=== PATIENT | female | born 1975 | race Caucasian/White ===

== ENCOUNTER 2016-06-09 17:43 | Emergency (ER) | payer OTHER ==
[2016-06-09 18:08] VITALS: BP 146/91; BMI 41.5
[2016-06-09] MEDS ORDERED: TORADOL 60 MG VIAL IM ONE (18:24)
[2016-06-09] MEDS ORDERED: DECADRON INJ IM ONE (18:24)
--- NOTE | 2016-06-09 18:26 | DR.EXTPAIN ---
HPI - Time seen Time seen: 18:25 - PCP Primary Care Physician: RAMILA ALMEIDA - HPI Comment HPI Comment: NO OBVIOUS INJURY. TRAMADOL NOT HELPING PAIN. PENDING APPOINTMENT WITH FOOT DOCTOR. - Complaint/Symptoms Chief Complaint Doctor Comments: RIGHT FOOT PAIN TIMES 5 DAYS. Chief Complaint:: PAIN TO INSIDE OF RIGHT INNER FOOT. HAS BEEN TAKING TRAMADOL AND MOTRIN WITH NO RELIEF. CANT SEE MD FOR 2 WEEKS - Nurses notes reviewed Nurses Notes Review: Yes - Source History Provided: Patient - Mode of arrival Mode of Arrival: Ambulatory - Timing Onset of Chief Complaint: 06/04/16 - Context History of: None - Associated signs and symptoms Associated Signs and Symptoms: Pain, Swelling PMH - PMH Past Medical History: Yes Past Medical History: GERD, Hypertension Past Surgical History: Yes Surgical History: , Tonsillectomy - Family History History of Family Medical Conditions: Yes Family Medical History: Diabetes Mellitus, Cancer, Hypertension - Social History Alcohol Use: None Do you use any recreational Drugs:: No Lives With: Alone Lives Where: Home - infectious screening In the last 2 months have you had wt loss of >10#?: NO Have you had fever, night sweats or hemotysis?: No Have you traveled outside the country in the last 6 months?: No Isolation: Standard ROS - Review of Systems Constitutional: No Symptoms Reported Eyes: No Symptoms Reported ENTM: No Symptoms Reported Respiratoy: No Symptoms Reported Cardiovascular: No Symptoms Reported Gastrointestinal/Abdominal: No Symptoms Reported Genitourinary: No Symptoms Reported Neurological: No Symptoms Reported Musculoskeletal: Right, Foot Integumentary: No Symptoms Reported Hematologic/Lymphatic: No Symptoms Reported Endocrine: No Symptoms Reported All Other Systems: Reviewed and Negative PE - Vital Signs Vitals: Temperature 98.1 F Pulse Rate 56 Respiratory Rate 18 Blood Pressure [Left Arm] 157/97 Blood Pressure 146/91 O2 Sat by Pulse Oximetry 99 - General Limitations: No Limitations General Appearance: Alert - Head Head Exam: Normal Inspection - Eyes Eye exam: Normal Appearance - ENT ENT Exam: Normal External Ear Exam - Neck Neck Exam: Trachea Midline - Chest Chest Inspection: Symmetric Chest Wall Rise - Respiratory Respiratory Exam: Bilateral Clear to Auscultation - Cardiovascular Cardiovascular Exam: Regular Rate, Normal Rhythm, Normal Heart Sounds - Extremities Extremities Exam: Tenderness (RIGHT FOOT NEAR HEEL.) - Lower Extremities Foot/Toe Exam: Tenderness (RT FOOT) Gait Exam: Observed & Limited by Pain - Neurological Neurological Exam: Alert, Oriented X3 - Psychiatric Psychiatric Exam: Normal Affect, Normal Mood - Skin Skin Exam: Normal Color MDM - Differential Diagnosis Differential Diagnosis: Fracture, Sprain Course - Treatment Treatment: SEE ORDERS - Education/Counseling Education/Counseling: Patient, Education Educated On: Diagnosis, Needs for Follow Up ROR - XRAY XRAY Interpreted by: Radiologist XRAY Findings: report discuss with patient. - Diagnosis Discharge Problem: Foot sprain Qualifiers: Encounter type: initial encounter Laterality: right Qualified Code(s): S93.601A - Unspecified sprain of right foot, initial encounter - Discharge Plan Disposition: HOME, SELF-CARE Condition: Stable Prescriptions: Acetaminophen W/ Codeine [Tylenol/Codeine #3 300-30 mg] 1 tab PO Q4-6H PRN #15 tab PRN Reason: Pain Methylprednisolone Dosepak 4Mg [MEDROL DOSEPAK (4 mg tab x 21)] 1 brandan PO ONCE # 1 brandan - Follow ups/Referrals Follow ups/Referrals: EVONNE ALMEIDA [Primary Care Provider] - 3 days - Instructions Instructions: Foot Sprain Additional Instructions: RETURN TO ED IF WORSE. CONTINUE WITH MOTRIN AT HOME.
[2016-06-09] MEDS ORDERED: DECADRON INJ ONE (18:29)
[2016-06-09] MEDS ORDERED: TORADOL 60 MG VIAL ONE (18:29)
--- NOTE | 2016-06-09 18:50 | RAD ---
Right foot three views Indication: Medial foot pain without trauma. Findings: There is no cortical lucency or malalignment. Soft tissues appear normal. Minimal midfoot degenerative change enthesopathy of the calcaneus noted. Impression: No acute right foot osseous abnormality. Reported By:
== END 2016-06-09 19:23 | disposition home or self-care (01) ==
LOC: ER 18:08
DX: S93.601A Unspecified sprain of right foot, initial encounter (principal); Y33.XXXA Other specified events, undetermined intent, initial encounter; Y92.9 Unspecified place or not applicable
CPT/HCPCS: 29540; 73630; 96372; 99283; J1100; J1885

== ENCOUNTER 2017-03-30 17:33 | Emergency (ER) | payer OTHER ==
[2017-03-30 17:42] VITALS: BP 130/83; BMI 36.6
== END 2017-03-30 20:58 | disposition left against medical advice (07) ==
LOC: ER 17:58
DX: R10.31 Right lower quadrant pain (principal)
CPT/HCPCS: 99281

== ENCOUNTER → 2017-04-21 | Outpatient (CLI) | payer OTHER ==
[2017-03-30 17:42] VITALS: BP 130/83
--- NOTE | 2017-04-21 15:09 | RAD ---
HISTORY: Contusion. Study: Left forearm two views Comparison: None. Findings: No evidence for acute cortical disruption or dislocation can be identified. The carpal bones appear well aligned. The radius and ulna are unremarkable. The elbow is intact. No significant soft tissue abnormality is identified. IMPRESSION: 1. Negative exam. Reported By:
--- NOTE | 2017-04-21 17:50 | RAD ---
HISTORY: Left hand contusion Study: Left hand: Three views Comparison: None Findings: Carpal, metacarpal and phalangeal alignment is normal. Early degenerative changes noted in the 1st m etacarpophalangeal joint with minimal in the interphalangeal joint of the thumb. A tiny detached ost eophyte is present along the radial aspect of the interphalangeal joint of the thumb. Mild joint spa ce narrowing is noted within several joints. 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 No acute bony or joint abnormalities are identified. IMPRESSION: 1. Mild degenerative change in the left hand. 2. No acute bony or joint abnormalities are identified. Reported By:
== END ==
LOC: RAD 13:22
PROVIDERS: ATTEND Obstetrics & Gynecology Obstetrics
DX: S60.222A Contusion of left hand, initial encounter (principal); X58.XXXA Exposure to other specified factors, initial encounter
CPT/HCPCS: 73090; 73130

== ENCOUNTER 2017-07-06 02:50 | Emergency (ER) | payer SELFPAY ==
[2017-07-06 03:08] VITALS: BP 159/90; BMI 39.2
--- NOTE | 2017-07-06 03:33 | DR.EARACHE ---
HPI - Time Seen Time seen: 03:30 - PCP Primary Care Physician: VINCE Graf - Complaint/Symptoms Chief Complaint:: Patient states her left ear is killing her. States started hurting 7PM. States she just got over a cold and can feel the cold moving around in her ear. Self Treatment fo Chief Complaint: Nyquil and Mucinex before bed and another Mucinex prior to arriving to hospital, Inserted Peroxide and Alcohol into ear. - Source History Provided: Patient - Mode of arrival Mode of Arrival: Ambulatory - Timing Onset of Chief Complaint: 07/05/17 PMH - PMH Past Medical History: Yes Past Medical History: GERD, Hypertension Past Surgical History: Yes Surgical History: Cholecystectomy, Tonsillectomy - Family History History of Family Medical Conditions: Yes Family Medical History: Diabetes Mellitus, Hypertension - Social History Does patient currently use any type of tobacco product: No Have you used tobacco products in the last 12 months: No Type of Tobacco Use: None Does any household member use tobacco: No Alcohol Use: None Do you use any recreational Drugs:: No Lives With: Alone Lives Where: Home - infectious screening In the last 2 months have you had wt loss of >10#?: NO Have you had fever, night sweats or hemotysis?: No Have you traveled outside the country in the last 6 months?: No Isolation: Standard ROS - Review of Systems Eyes: No Symptoms Reported ENTM: Ear Pain (left) Respiratoy: No Symptoms Reported Cardiovascular: No Symptoms Reported Gastrointestinal/Abdominal: No Symptoms Reported Genitourinary: No Symptoms Reported Neurological: No Symptoms Reported Musculoskeletal: No Symptoms Reported Integumentary: No Symptoms Reported Hematologic/Lymphatic: No Symptoms Reported Endocrine: No Symptoms Reported, Increased Hunger All Other Systems: Reviewed and Negative PE - Vitals Vitals: Temperature 98.3 F Pulse Rate [Right Brachial] 61 Pulse Rate 61 Respiratory Rate 18 Blood Pressure [Right Arm] 159/90 Blood Pressure [Left Arm] 157/97 Blood Pressure 159/90 O2 Sat by Pulse Oximetry 100 - General General Appearance: Alert, In No Apparent Distress - Head Head Exam: Normal Inspection, Atraumatic - Eyes Eye exam: Normal Appearance, PERRL, EOMI - ENT ENT Exam: Normal Exam External Ear Exam: Normal External Inspection TM/Canal Exam: Bilateral Erythema Nose Exam: Normal Nose Exam Nasal Speculum Exam: Bilateral Normal Mouth Exam: Normal Inspection Teeth Exam: Normal Inspection Throat Exam: Normal Inspection - Neck Neck Exam Focused: Normal Inspection - Chest Chest Inspection: Normal Inspection - Respiratory Respiratory Exam: Normal Lung Sounds Bilat Respiratory Exam: Bilateral Clear to Auscultation - Cardiovascular Cardiovascular Exam: Regular Rate, Normal Rhythm - Abdominal Exam Abdominal Exam: Normal Inspection, Normal Bowel Sounds Abdominal Tenderness: negative: RUQ, RLQ, LUQ, LLQ, Epigastrium, Suprapubic, Diffuse, Mild, Moderate, Severe, Other - Extremities Extremities Exam: Normal Inspection - Back Back Exam: Normal Inspection - Neurological Neurological Exam: Alert, Oriented X3, CN II-XII Intact - Psychiatric Psychiatric Exam: Normal Affect, Normal Mood - Skin Skin Exam: Warm, Dry, Intact - Diagnosis Discharge Problem: Bilateral otitis media Qualifiers: Otitis media type: suppurative Chronicity: acute Recurrence: not specified as recurrent Spontaneous tympanic membrane rupture: without spontaneous rupture Qualified Code(s): H66.003 - Acute suppurative otitis media without spontaneous rupture of ear drum, bilateral - Discharge Plan Condition: Stable - Follow ups/Referrals Follow ups/Referrals: EVONNE ALMEIDA [Primary Care Provider] - 3 days - Instructions
[2017-07-06] MEDS ORDERED: AUGMENTIN 500 MG/125 MG TAB PO ONE ×2 (03:39→03:42)
== END 2017-07-06 03:52 | disposition home or self-care (01) ==
LOC: ER 02:50
DX: H66.003 Acute suppurative otitis media without spontaneous rupture of ear drum, bilateral (principal)
CPT/HCPCS: 99282

== ENCOUNTER 2017-08-01 09:54 | Emergency (ER) | payer OTHER ==
[2017-08-01 10:01] VITALS: BP 131/84; BMI 37.0
--- NOTE | 2017-08-01 10:17 | DR.GENAD ---
HPI - PCP Primary Care Physician: gustavo dutton - HPI Comment HPI Comment: INCREASING PAIN LEFT MID BACK SINCE. - Complaint/Symptoms Chief Complaint Doctors Comments: MID BACK PAIN DUE TO A FALL LAST NIGHT. Chief Complaint:: " I fell lastnight and hurt my back in the middle on the left side" Self Treatment fo Chief Complaint: have not had a period this month wants a test done if possible - Nurses notes reviewed Nurses Notes Review: Yes - Source History Provided: Patient - Mode of Arrival Mode of Arrival: Ambulatory - Timing Onset of Chief Complaint: 07/31/17 Came on: Suddenly - Duration Duration: Constant Duration: Hours - Severity Severity: Moderate PMH - PMH Past Medical History: Yes Past Medical History: Hypertension Past Surgical History: Yes Surgical History: , Cholecystectomy, Tonsillectomy - Family History History of Family Medical Conditions: Yes Family Medical History: Diabetes Mellitus, Hypertension - Social History Does patient currently use any type of tobacco product: No Have you used tobacco products in the last 12 months: No Type of Tobacco Use: None Does any household member use tobacco: No Alcohol Use: None Do you use any recreational Drugs:: No Lives With: Family Lives Where: Home - infectious screening In the last 2 months have you had wt loss of >10#?: NO Have you had fever, night sweats or hemotysis?: No Have you traveled outside the country in the last 6 months?: No Isolation: Standard ROS - Review of Systems Constitutional: No Symptoms Reported Eyes: No Symptoms Reported ENTM: No Symptoms Reported Respiratoy: No Symptoms Reported Cardiovascular: No Symptoms Reported Gastrointestinal/Abdominal: No Symptoms Reported Genitourinary: No Symptoms Reported Neurological: No Symptoms Reported Musculoskeletal: Back Pain (MID BACK PAIN LEFT SIDE.) Integumentary: No Symptoms Reported Hematologic/Lymphatic: No Symptoms Reported Endocrine: No Symptoms Reported All Other Systems: Reviewed and Negative PE - Vital Signs Vitals: Temperature 98.4 F Pulse Rate 73 Respiratory Rate 18 Blood Pressure [Right Arm] 159/90 Blood Pressure [Left Arm] 157/97 Blood Pressure 131/84 O2 Sat by Pulse Oximetry 99 - General Limitations: No Limitations General Appearance: Alert - Head Head Exam: Normal Inspection - Eyes Eye exam: Normal Appearance - ENT ENT Exam: Normal External Ear Exam External Ear Exam: Normal External Inspection TM/Canal Exam: Bilateral Normal Nose Exam: Normal Nose Exam Mouth Exam: Normal Inspection Throat Exam: Normal Inspection - Neck Neck Exam: Normal Inspection - Chest Chest Inspection: Symmetric Chest Wall Rise - Respiratory Respiratory Exam: Normal Lung Sounds Bilat Respiratory Exam: Bilateral Clear to Auscultation - Cardiovascular Cardiovascular Exam: Regular Rate, Normal Rhythm, Normal Heart Sounds - Abdominal Exam Abdominal Exam: Normal Bowel Sounds, Soft. negative: Tenderness - Extremities Extremities Exam: Normal Inspection - Back Back Exam: Tenderness (MID BACK TENDERNESS, LT SIDE.), Paraspinal Tenderness ( MID BACK LT SIDE.) - Neurologic Neurological Exam: Alert, Oriented X3 - Psychiatric Psychiatric Exam: Normal Affect, Normal Mood - Skin Skin Exam: Normal Color MDM - Differential Diagnosis Differential Diagnosis: MID BACK PAIN, CONTUSION, STRAIN/SPRAIN OR FRACTURE. Course - Treatment Treatment: SEE ORDERS. IM TORADOL AND NORFLEX, PAIN IMPROVING. - Reevaluation 1st: Improved - Education/Counseling Education/Counseling: Patient, Education Educated On: Diagnosis, Needs for Follow Up ROR - Labs Reviewed Laboratory: HCG, Qual Negative <10 mIU/mL 08/01/17 10:32 - XRAY XRAY Interpreted by: Radiologist XRAY Findings: REPORT DISCUSS WITH PATIENT. - Diagnosis Discharge Problem: Strain of mid-back Qualifiers: Encounter type: initial encounter Qualified Code(s): S29.012A - Strain of muscle and tendon of back wall of thorax, initial encounter - Discharge Plan Disposition: 01 HOME, SELF-CARE Condition: Stable Prescriptions: Cyclobenzaprine HCl [FLEXERIL 10 MG *] 10 mg PO TID PRN 15 Days #60 tab PRN Reason: Ibuprofen [MOTRIN TAB 800 MG *] 800 mg PO Q8H PRN #20 tab PRN Reason: Pain/Inflammation - Follow ups/Referrals Follow ups/Referrals: EVONNE DUTTON [Primary Care Provider] - 3 days - Instructions Instructions: Thoracic Strain, [id number] Additional Instructions: RETURN TO ED IF WORSE.
[2017-08-01 10:54] LABS: SERUM PREGNANCY TEST, QUAL NEGATIVE <10 mIU/mL
[2017-08-01] MEDS ORDERED: TORADOL 60 MG VIAL IM ONE (11:02)
[2017-08-01] MEDS ORDERED: NORFLEX INJ IM ONE (11:02)
[2017-08-01] MEDS ORDERED: NORFLEX INJ ONE (11:17)
[2017-08-01] MEDS ORDERED: TORADOL 60 MG VIAL ONE (11:17)
--- NOTE | 2017-08-01 11:26 | RAD ---
Examination: Thoracic spine, AP and lateral views History: Trauma Findings: There is no evidence for abnormality involving vertebrae, disc spaces or paraspinal soft ti ssues. Alignment is intact. No fracture identified. Impression: No acute or significant findings thoracic spine. Reported By:
== END 2017-08-01 11:46 | disposition home or self-care (01) ==
LOC: ER 10:04
DX: S29.012A Strain of muscle and tendon of back wall of thorax, initial encounter (principal); W19.XXXA Unspecified fall, initial encounter
CPT/HCPCS: 36415; 72072; 84703; 96372; 99283; J1885; J2360